=== PATIENT | male | born 1945 | race American Indian/Alaskan Native ===

== ENCOUNTER 2021-11-21 08:30 | Emergency (ER) | payer MEDICAID ==
[2021-11-21] MEDS ORDERED: Albuterol/Ipratropium 3.0-0.5 MG/3 ML Neb Soln NEB ONE (08:52)
[2021-11-21] MEDS ORDERED: Sodium Chloride 0.9% 10 ML Syringe FLUSH PRN (08:59)
[2021-11-21] MEDS ORDERED: Labetalol 20 MG/4 ML Syringe IVPUSH ONE (09:02)
[2021-11-21 09:43] LABS: CHLORIDE,CL 100 mmol/L (98-107); SODIUM,NA 134 mmol/L (136-145)
[2021-11-21 09:50] VITALS: BP 132/85; PULSE 63
[2021-11-21 09:54] LABS: CORONAVIRUS COVID-19 NAA NEGATIVE (NEGATIVE); RESPIRATORY SYNCYTIAL VIR NAA NEGATIVE (NEGATIVE)
[2021-11-21] MEDS ORDERED: methylPREDNISolone Sodium Succinate 125 MG/2 ML SDV IV ONE (10:05)
== END 2021-11-21 10:21 | disposition home or self-care (01) ==
LOC: VM.ED 08:30
DX: J44.1 Chronic obstructive pulmonary disease with (acute) exacerbation (principal); Z72.0 Tobacco use; Z20.822 Contact with and (suspected) exposure to COVID-19
CPT/HCPCS: 0241U; 36415; 71045; 80053; 83735; 83880; 84100; 84484; 85025; 86140; 93005; 93010; 96374; 96375; 99284; 99285-25; J2930; J3490; J7620-GY

== ENCOUNTER 2023-06-02 20:05 | Emergency (ER) | payer MEDICAID, OTHER ==
[2023-06-02] MEDS ORDERED: Sodium Chloride 0.9% 10 ML Syringe FLUSH PRN (20:14)
[2023-06-02] MEDS: Albuterol/Ipratropium 3.0-0.5 MG/3 ML Neb Soln NEB ONE (20:25)
[2023-06-02] MEDS: HYDROmorphone 0.5 MG/0.5 ML Syringe IVPUSH ONE (20:30)
[2023-06-02 20:38] LABS: BASOPHILS ABSOLUTE AUTO 0.1 x10^3/uL (0.0-0.2); BASOPHILS PERCENT AUTO 0.4 % (0.2-1.2); EOSINOPHILS ABSOLUTE AUTO 0.1 x10^3/uL (0.0-0.5); EOSINOPHILS PERCENT AUTO 0.8 % (0.0-4.0); HEMATOCRIT 41.8 % (40.0-52.0); HEMOGLOBIN 14.5 g/dL (14.0-18.0); IMMATURE GRAN ABSOLUTE AUTO 0.09 x10^3/uL (0.00-0.07); LYMPHOCYTES ABSOLUTE AUTO 3.6 x10^3/uL (1.0-4.8); LYMPHOCYTES PERCENT AUTO 28.2 % (25.0-50.0); MEAN CORPUSCULAR HEMOGLOBIN 27.7 pg (26.0-32.0); MEAN CORPUSCULAR HGB CONC 34.7 g/dL (32.0-36.0); MEAN CORPUSCULAR VOLUME 79.9 fL (78.0-93.0); MONOCYTES ABSOLUTE AUTO 1.2 x10^3/uL (0.0-0.8); MONOCYTES PERCENT AUTO 9.4 % (2.0-11.0); NEUTROPHILS ABSOLUTE AUTO 7.8 x10^3/uL (1.8-7.7); NEUTROPHILS PERCENT AUTO 60.5 % (50.0-80.0); PLATELET COUNT,PLT 299 x10^3/uL (130-400); RED BLOOD CELL COUNT 5.23 x10^6/uL (4.5-6.0); WHITE BLOOD CELL COUNT,WBC 12.8 x10^3/uL (4.0-10.0)
[2023-06-02] MEDS: Ondansetron 4 MG/2 ML SDV IVPUSH ONE (20:38)
[2023-06-02 20:47] LABS: HCO3 VENOUS,POC 27 mmol/L (22-29); O2 SATURATION VENOUS,POC 58 %; PCO2 VENOUS,POC 63 mmHg (41-51); PH VENOUS,POC 7.24 pH (7.32-7.43); PO2 VENOUS,POC 36 mmHg
[2023-06-02 20:53] LABS: INR 0.9 (0.9-1.1); PROTHROMBIN TIME 9.6 SEC (9.5-12.2); PTT,PARTIAL THROMBOPLSTIN TIME 25.3 SEC (23.6-33.6)
[2023-06-02 21:04] LABS: A/G RATIO 0.85; ALANINE AMINOTRANSFERASE,ALT 33 U/L (16-63); ALBUMIN 3.4 g/dL (3.4-5.0); ALKALINE PHOSPHATASE 110 U/L (46-116); ASPARTATE AMNIOTRANSFERASE,AST 28 U/L (15-37); BILIRUBIN TOTAL 0.5 mg/dL (0.2-1.0); BLOOD UREA NITROGEN,BUN 15 mg/dL (7-18); C-REACTIVE PROTEIN 0.72 mg/dL (<=0.30); CALCIUM 8.8 mg/dL (8.5-10.1); CARBON DIOXIDE,CO2 28 mmol/L (21-32); CHLORIDE,CL 90 mmol/L (98-107); CREATININE 0.9 mg/dL (0.70-1.30); GLUCOSE RANDOM 110 mg/dL (70-99); POTASSIUM,K 3.8 mmol/L (3.5-5.1); PRO B-TYPE NATRIUR PEPT,BNPPRO 2185 pg/mL (<=450); PROTEIN TOTAL,TP 7.4 g/dL (6.4-8.2)
[2023-06-02 21:05] LABS: ANION GAP 13.8 mmol/L (5-15); ESTIMATED GFR 87 mL/min (>=60); SODIUM,NA 128 mmol/L (136-145)
[2023-06-02] MEDS: methylPREDNISolone Sodium Succinate 125 MG/2 ML SDV IV ONE (21:05)
[2023-06-02 21:06] LABS: LACTIC ACID 2.6 mmol/L (0.4-2.0)
[2023-06-02] MEDS: fentaNYL 50 MCG/ML SDV IVPUSH ONE (21:20)
[2023-06-02 21:21] LABS: CORONAVIRUS COVID-19 NAA NEGATIVE (NEGATIVE); INFLUENZA A NAA NEGATIVE (NEGATIVE); INFLUENZA B NAA NEGATIVE (NEGATIVE); RESPIRATORY SYNCYTIAL VIR NAA NEGATIVE (NEGATIVE)
[2023-06-02] MEDS: cefTRIAXone 1 GM Vial IVPUSH ONE (21:35)
== END 2023-06-02 21:43 | disposition short-term general hospital (02) ==
LOC: VM.ED 20:05
DX: S22.42XA Multiple fractures of ribs, left side, initial encounter for closed fracture (principal); J44.1 Chronic obstructive pulmonary disease with (acute) exacerbation; Z20.822 Contact with and (suspected) exposure to COVID-19; W17.89XA Other fall from one level to another, initial encounter; Y92.009 Unspecified place in unspecified non-institutional (private) residence as the place of occurrence of the external cause
CPT/HCPCS: 0241U; 36415; 71045; 80053; 80307; 82803; 83605; 83735; 83880; 84484; 85025; 85610; 85730; 86140; 87040; 93005; 94640; 94760; 96365; 96375; 99285; J0696; J1170; J2405; J2930; J3010; J7620-GY

== ENCOUNTER 2024-02-16 11:38 | Emergency (ER) | payer MEDICAID, MEDICARE ==
[2024-02-16] MEDS: Albuterol/Ipratropium 3.0-0.5 MG/3 ML Neb Soln NEB ONE (11:55)
[2024-02-16 12:02] LABS: BASOPHILS PERCENT AUTO 0.4 % (0.2-1.2); EOSINOPHILS ABSOLUTE AUTO 0.4 x10^3/uL (0.0-0.5); EOSINOPHILS PERCENT AUTO 4.9 % (0.0-4.0); HEMATOCRIT 36.9 % (40.0-52.0); HEMOGLOBIN 12.4 g/dL (14.0-18.0); IMMATURE GRAN ABSOLUTE AUTO 0.03 x10^3/uL (0.00-0.07); LYMPHOCYTES ABSOLUTE AUTO 1.2 x10^3/uL (1.0-4.8); LYMPHOCYTES PERCENT AUTO 15.6 % (25.0-50.0); MEAN CORPUSCULAR HEMOGLOBIN 26.9 pg (26.0-32.0); MEAN CORPUSCULAR HGB CONC 33.6 g/dL (32.0-36.0); MONOCYTES ABSOLUTE AUTO 0.6 x10^3/uL (0.0-0.8); MONOCYTES PERCENT AUTO 8.1 % (2.0-11.0); NEUTROPHILS ABSOLUTE AUTO 5.5 x10^3/uL (1.8-7.7); NEUTROPHILS PERCENT AUTO 70.6 % (50.0-80.0); PLATELET COUNT,PLT 261 x10^3/uL (130-400); RED BLOOD CELL COUNT 4.61 x10^6/uL (4.5-6.0); WHITE BLOOD CELL COUNT,WBC 7.8 x10^3/uL (4.0-10.0)
[2024-02-16 12:23] LABS: A/G RATIO 0.83; ALANINE AMINOTRANSFERASE,ALT 22 U/L (16-63); ALBUMIN 3.3 g/dL (3.4-5.0); ALKALINE PHOSPHATASE 95 U/L (46-116); ASPARTATE AMNIOTRANSFERASE,AST 21 U/L (15-37); BILIRUBIN TOTAL 0.9 mg/dL (0.2-1.0); BLOOD UREA NITROGEN,BUN 20 mg/dL (7-18); CARBON DIOXIDE,CO2 28 mmol/L (21-32); CHLORIDE,CL 105 mmol/L (98-107); CREATININE 0.9 mg/dL (0.70-1.30); GLUCOSE RANDOM 98 mg/dL (70-99); POTASSIUM,K 4.4 mmol/L (3.5-5.1); PROTEIN TOTAL,TP 7.3 g/dL (6.4-8.2); SODIUM,NA 140 mmol/L (136-145)
[2024-02-16 12:25] LABS: ANION GAP 11.4 mmol/L (5-15); ESTIMATED GFR 87 mL/min (>=60)
[2024-02-16] MEDS: Take Home: predniSONE 20 MG, 2 Tab Pack PO ONE (12:47)
[2024-02-16] MEDS: Take Home: Doxycycline 100 MG Cap, 4 Cap Pack PO ONE (12:47)
== END 2024-02-16 12:50 | disposition home or self-care (01) ==
LOC: VM.ED 11:38
DX: J44.1 Chronic obstructive pulmonary disease with (acute) exacerbation (principal)
CPT/HCPCS: 36415; 71045; 80053; 85025; 94640; 99285; A9270-GY; J7512; J7620-GY

== ENCOUNTER 2025-06-22 11:12 | Emergency (ER) | payer MEDICARE, MEDICAID | END 2025-06-22 13:19 | disposition home or self-care (01) | LOC: VM.ED 11:12 | DX: S22.31XA Fracture of one rib, right side, initial encounter for closed fracture (principal); S46.911A Strain of unspecified muscle, fascia and tendon at shoulder and upper arm level, right arm, initial encounter; F17.200 Nicotine dependence, unspecified, uncomplicated; W22.8XXA Striking against or struck by other objects, initial encounter | CPT/HCPCS: 70450; 73030-RT; 73060-RT; 99284 ==